=== PATIENT | female | born 1965 | race Hispanic/Latino ===

== ENCOUNTER 2023-02-03 18:19 | Emergency (ER) | payer BC, OTHER ==
[~2023-02-03] VITALS: Ht 162.6 cm; Wt 99.8 kg
[2023-02-03] MEDS ORDERED: IOHEXOL-350 75 ML VIAL IV ONE (19:16)
[2023-02-03 19:36] LABS: BASOPHILS % (AUTO) 0.3 % (0.0-5.0); EOSINOPHILS % (AUTO) 0.7 % (0.0-8.0); HEMATOCRIT 40.3 % (36-48); LYMPHOCYTES % (AUTO) 29.5 % (21.0-51.0); MEAN CORPUSCULAR HGB CONC 32.3 g/dL (32.0-36.0); MEAN CORPUSCULAR VOLUME 89.8 fL (79-99); MONOCYTES % (AUTO) 5.9 % (3.0-13.0); NEUTROPHILS % (AUTO) 63.3 % (40.0-77.0); PLATELET COUNT (AUTO) 305 K/uL (130-400); RED BLOOD CELL COUNT(AUTO) 4.49 MIL/uL (4.00-5.50); RED CELL DISTRIBUTION WIDTH 12.8 % (11.0-15.5); WHITE BLOOD COUNT (AUTO) 11.7 K/uL (4.8-10.8)
[2023-02-03 19:49] LABS: CREATININE 0.6 mg/dL (0.5-1.5); POTASSIUM 3.5 mmol/L (3.5-5.1)
[2023-02-03 19:54] LABS: ALBUMIN 3.7 g/dL (3.5-5.0); TOTAL PROTEIN, SERUM 7.4 g/dL (6.0-8.3)
[2023-02-03 23:08] LABS: APPEARANCE,URINE CLEAR (CLEAR); BILIRUBIN,URINE NEGATIVE (NEGATIVE); COLOR,URINE COLORLESS (YELLOW); GLUCOSE, URINE (UA) NEGATIVE (NEGATIVE); KETONES,URINE 5 mg/dL (NEGATIVE); LEUKOCYTE ESTERASE ,URINE NEGATIVE Leu/uL (NEGATIVE); NITRATE,URINE NEGATIVE (NEGATIVE); OCCULT BLOOD,URINE NEGATIVE (NEGATIVE); PH,URINE 6.5 (5.0-8.0); PROTEIN,URINE NEGATIVE (NEGATIVE); UROBILINOGEN,URINE 0.2 mg/dL (0.2-1.0)
[2023-02-03] MEDS ORDERED: ACETAMINOPHEN 500 MG TABLET ONE (23:38)
[2023-02-03] MEDS ORDERED: MORPHINE 2 MG SYG ONE (23:38)
[2023-02-03] MEDS ORDERED: ONDANSETRON 4MG INJ ONE (23:38)
[2023-02-03] MEDS ORDERED: CIPR-278 PO (23:42)
[2023-02-03] MEDS ORDERED: IBUP-1493 PO (23:42)
[2023-02-03 23:43] VITALS: BP 134/75
== END 2023-02-03 23:53 | disposition home or self-care (01) ==
LOC: EDH 18:19
DX: K57.30 Diverticulosis of large intestine without perforation or abscess without bleeding (principal); E11.9 Type 2 diabetes mellitus without complications; I10 Essential (primary) hypertension; Z90.49 Acquired absence of other specified parts of digestive tract
CPT/HCPCS: 99284; 74177; 84484; 80053; 83690; 85025; 81003; 36415; 93005; J2405; Q9967

== ENCOUNTER 2023-05-26 21:04 | Emergency (ER) | payer BC ==
[~2023-05-26] VITALS: Ht 160 cm; Wt 99.8 kg
[~2023-05-26 21:04] MED LIST: CIPR-278 PO; IBUP-1493 PO
[2023-05-26 22:49] LABS: HEMATOCRIT 39.6 % (36-48); MEAN CORPUSCULAR HEMOGLOBIN 30.1 pg (27.0-33.0); MEAN CORPUSCULAR HGB CONC 32.8 g/dL (32.0-36.0); MEAN CORPUSCULAR VOLUME 91.7 fL (79-99); RED BLOOD CELL COUNT(AUTO) 4.32 MIL/uL (4.00-5.50); RED CELL DISTRIBUTION WIDTH 12.8 % (11.0-15.5); WHITE BLOOD COUNT (AUTO) 9.8 K/uL (4.8-10.8)
[2023-05-26 22:56] LABS: CREATININE 0.6 mg/dL (0.5-1.5); POTASSIUM 4.3 mmol/L (3.5-5.1)
[2023-05-26 23:01] LABS: ALBUMIN 3.7 g/dL (3.5-5.0); BILIRUBIN,TOTAL 0.7 mg/dL (0.2-1.0); TOTAL PROTEIN, SERUM 7.5 g/dL (6.0-8.3)
[2023-05-27 02:04] LABS: APPEARANCE,URINE CLEAR (CLEAR); BILIRUBIN,URINE NEGATIVE (NEGATIVE); COLOR,URINE LIGHT-YELLOW (YELLOW); GLUCOSE, URINE (UA) NEGATIVE (NEGATIVE); KETONES,URINE 40 mg/dL (NEGATIVE); LEUKOCYTE ESTERASE ,URINE NEGATIVE Leu/uL (NEGATIVE); NITRATE,URINE NEGATIVE (NEGATIVE); OCCULT BLOOD,URINE NEGATIVE (NEGATIVE); PH,URINE 6.5 (5.0-8.0); PROTEIN,URINE 10 mg/dL (NEGATIVE); UROBILINOGEN,URINE 0.2 mg/dL (0.2-1.0)
[2023-05-27 02:06] LABS: ADD UA MICROSCOPIC NO
[2023-05-27] MEDS ORDERED: AMLO-257 PO (02:41)
[2023-05-27] MEDS ORDERED: LORA10TA7 PO (02:43)
[2023-05-27] MEDS ORDERED: CLONIDINE HCL 0.2 MG TABLET PO ONE (03:00)
[2023-05-27 03:15] LABS: SARS-CoV-2, RNA, NAAT NEGATIVE SARS CoV-2 (NEGATIVE)
[2023-05-27 03:24] VITALS: BP 126/72; PULSE 84; RESP 16; O2SAT 97
== END 2023-05-27 03:42 | disposition home or self-care (01) ==
LOC: EDH 21:04
DX: I10 Essential (primary) hypertension (principal); R11.0 Nausea; E11.9 Type 2 diabetes mellitus without complications; K21.9 Gastro-esophageal reflux disease without esophagitis; E78.5 Hyperlipidemia, unspecified; Z20.822 Contact with and (suspected) exposure to COVID-19; Z90.49 Acquired absence of other specified parts of digestive tract; Z79.899 Other long term (current) drug therapy
CPT/HCPCS: 99283; 87635; 84484; 80053; 85027; 81003; 36415; 71045; C9803